=== PATIENT | male | born 1990 | race Caucasian/White ===

== ENCOUNTER 2025-04-20 21:55 | Emergency (ER) | payer SELFPAY | END 2025-04-20 22:30 | disposition home or self-care (01) | LOC: KA.ED 21:55 | DX: S61.412A Laceration without foreign body of left hand, initial encounter (principal); W26.8XXA Contact with other sharp object(s), not elsewhere classified, initial encounter; Y93.89 Activity, other specified | CPT/HCPCS: 12002; 73130-LT; 99283; J3490 ==